=== PATIENT | female | born 1955 | race African-American/Black ===

== ENCOUNTER 2024-04-08 23:22 | Emergency (ER) | payer MEDICARE, MEDICAID ==
[~2024-04-08] VITALS: Ht 170.2 cm; Wt 80.3 kg
[~2024-04-08 23:22] MED LIST: ATOR10TA69 PO; LEVE10006 PO; SERT-438 PO; TRAZ-257 PO
[2024-04-08 23:48] VITALS: TEMP 98.6
[2024-04-09] MEDS: KETOROLAC TROMETHAMINE 30 MG/ML VIAL IM ONE (04:06)
[2024-04-09] MEDS: AmLODIPine BESYLATE 5 MG TABLET PO ONE (07:25)
[2024-04-09] MEDS: CloNIDine HCL 0.1 MG TABLET PO ONE ×2 (07:25→08:15)
[2024-04-09] MEDS: OxyCODONE HCL/ACETAMINOPHEN 5-325 MG TABLET PO ONE (08:15)
[2024-04-09 09:06] VITALS: BP 136/86; PULSE 59; RESP 16
[2024-04-12] MEDS ORDERED: OLAN5TAB77 PO (15:01)
[2024-04-12] MEDS ORDERED: PROP10TA73 PO ×2 (15:04→15:37)
[2024-04-12] MEDS ORDERED: AMLO-257 PO (15:06)
[2024-04-12] MEDS ORDERED: AMLO5TAB66 PO ×2 (15:11→15:37)
[2024-04-12] MEDS ORDERED: ATOR10TA PO (15:12)
[2024-04-12] MEDS ORDERED: ATOR10TA69 PO (15:37)
[2024-04-12] MEDS ORDERED: LEVE10006 PO (15:37)
== END 2024-04-09 12:10 | disposition home or self-care (01) ==
LOC: EMS 23:25
DX: M48.32 Traumatic spondylopathy, cervical region (principal); F41.9 Anxiety disorder, unspecified; F31.9 Bipolar disorder, unspecified; G43.909 Migraine, unspecified, not intractable, without status migrainosus; F17.210 Nicotine dependence, cigarettes, uncomplicated; Z98.890 Other specified postprocedural states; Z88.0 Allergy status to penicillin; Z88.5 Allergy status to narcotic agent
CPT/HCPCS: 99285; 70450; 72125; 96372; J1885